=== PATIENT | female | born 1985 | race African-American/Black ===

== ENCOUNTER 2021-12-16 13:32 | Emergency (ER) | payer SELFPAY ==
[~2021-12-16] VITALS: Ht 157.5 cm; Wt 49.9 kg
[2021-12-16] MEDS ORDERED: DOXYCYCLINE HY100 M3 PO (14:29)
[2021-12-16] MEDS ORDERED: DOXYCYCLINE HYCLATE TABLET 100 MG TAB PO ONE (14:30)
[2021-12-16] MEDS ORDERED: CEFTRIAXONE 1 GM VIAL IM ONE (14:30)
[2021-12-16] MEDS ORDERED: LIDOCAINE HCL 1% LOCAL INJ 20 ML VIAL ONE (14:38)
== END 2021-12-16 14:50 | disposition home or self-care (01) ==
LOC: FSED 13:56
DX: N73.9 Female pelvic inflammatory disease, unspecified (principal); F17.210 Nicotine dependence, cigarettes, uncomplicated
CPT/HCPCS: 81003; 81025; 96372; 99283; J0696; J2001

== ENCOUNTER 2022-04-17 13:44 | Emergency (ER) | payer SELFPAY ==
[~2022-04-17] VITALS: Ht 157.5 cm; Wt 49.9 kg
[~2022-04-17 13:44] MED LIST: DOXYCYCLINE HY100 M3 PO
[2022-04-17] MEDS ORDERED: NAPROSYN500 MG PO (15:59)
[2022-04-17] MEDS ORDERED: ULTRAM 50MG50 MG PO (16:01)
== END 2022-04-17 16:17 | disposition home or self-care (01) ==
LOC: FSED 14:20
DX: S92.351A Displaced fracture of fifth metatarsal bone, right foot, initial encounter for closed fracture (principal); X58.XXXA Exposure to other specified factors, initial encounter
CPT/HCPCS: 99284